=== PATIENT | male | born 1955 | race Caucasian/White ===

== ENCOUNTER 2018-07-30 06:33 | Emergency (ER) | payer BC ==
[~2018-07-30] VITALS: Ht 175.3 cm; Wt 90.7 kg
[~2018-07-30 06:33] MED LIST: ASPIR 8181 MG PO; AVALIDE 150-12.1 TA1 PO; CRESTOR20 MG PO; FISH OIL500 M1 PO; INDOCIN25 MG PO; PLAVIX75 MG PO
== END 2018-07-30 11:46 | disposition home or self-care (01) ==
LOC: ER 06:33
DX: L98.8 Other specified disorders of the skin and subcutaneous tissue (principal); M79.672 Pain in left foot